=== PATIENT | male | born 1965 | race Caucasian/White ===

== ENCOUNTER 2021-04-27 14:40 | Emergency (ER) | payer OTHER ==
[~2021-04-27] VITALS: Ht 180.3 cm; Wt 79.4 kg
[2021-04-27] MEDS ORDERED: DOXYCYCLINE 10100 MG PO (15:54)
[2021-04-27 16:03] VITALS: BP 142/70
== END 2021-04-27 16:04 | disposition home or self-care (01) ==
LOC: M.ERS 14:40
DX: L02.811 Cutaneous abscess of head [any part, except face] (principal); L02.411 Cutaneous abscess of right axilla; L02.01 Cutaneous abscess of face

== ENCOUNTER 2021-05-08 01:13 | Emergency (ER) | payer OTHER ==
[~2021-05-08] VITALS: Ht 177.8 cm; Wt 81.7 kg
[~2021-05-08 01:13] MED LIST: DOXYCYCLINE 10100 MG PO
[2021-05-08] MEDS ORDERED: HYDROCODON-ACE1 EAC7 PO (02:14)
[2021-05-08] MEDS ORDERED: DOXYCYCLINE 10100 MG PO (02:14)
[2021-05-08 04:50] VITALS: BP 145/84
== END 2021-05-08 04:50 | disposition home or self-care (01) ==
LOC: M.ERS 01:13
DX: L03.114 Cellulitis of left upper limb (principal)